=== PATIENT | female | born 1970 | race African-American/Black ===

== ENCOUNTER 2017-06-12 19:50 | Emergency (ER) | payer BC ==
[~2017-06-12] VITALS: Ht 167.6 cm; Wt 81.7 kg
[2017-06-12 19:52] VITALS: BP 142/111
[2017-06-12] MEDS ORDERED: DOXYCYCLINE 10100 MG PO (20:14)
[2017-06-12] MEDS ORDERED: IBUPROFEN 600600 M1 PO (20:16)
== END 2017-06-12 20:38 | disposition home or self-care (01) ==
LOC: ER 19:50
DX: R21 Rash and other nonspecific skin eruption (principal); Z88.0 Allergy status to penicillin